=== PATIENT | female | born 1945 | race Two or more races ===

== ENCOUNTER 2023-02-06 08:30 | Inpatient (IN) | payer OTHER ==
[~2023-02-06] VITALS: Ht 157.5 cm; Wt 97.5 kg
[2023-02-06] MEDS ORDERED: CHILDREN'S ASPI81 MG PO (10:39)
[2023-02-06] MEDS ORDERED: HYDRODIURIL12.5 MG PO (10:39)
[2023-02-06] MEDS ORDERED: LEVO-T50 MCG PO (10:39)
[2023-02-06] MEDS ORDERED: CLARITIN10 M1 PO (10:39)
[2023-02-06] MEDS ORDERED: NIFEDIPINE ER30 M1 PO (10:40)
[2023-02-06] MEDS ORDERED: CARVEDILOL12.5 MG (10:40)
[2023-02-12] MEDS ORDERED: FOLIC ACID1 MG (08:37)
[2023-02-12] MEDS ORDERED: DOXAZOSIN MESYLA8 MG (08:38)
[2023-02-13] MEDS ORDERED: PERCOCET 5-3251 EACH PO (15:51)
[2023-02-13] MEDS ORDERED: ELIQUIS2.5 MG PO (15:51)
[2023-02-13] MEDS ORDERED: CIPRO500 MG PO (15:51)
== END 2023-02-14 13:33 | DRG 470 ==
LOC: O/R 02-11 06:00 → SURH 02-11 08:30
PROVIDERS: ADMIT Orthopaedic Surgery; ATTEND Orthopaedic Surgery
PROC: 0SRC0J9 Replacement of Right Knee Joint with Synthetic Substitute, Cemented, Open Approach (ICD-10-PCS; principal; 2023-02-11 17:45)
DX: M17.11 Unilateral primary osteoarthritis, right knee (principal); D62 Acute posthemorrhagic anemia; M22.11 Recurrent subluxation of patella, right knee; M81.0 Age-related osteoporosis without current pathological fracture; E66.9 Obesity, unspecified; I10 Essential (primary) hypertension